=== PATIENT | male | born 2000 | race Caucasian/White ===

== ENCOUNTER 2019-09-14 00:14 | Inpatient (IN) | payer BC, SELFPAY ==
[2019-09-14 00:41] VITALS: BP 116/72; PULSE 87; RESP 18; TEMP 36.4; O2SAT 98; BMI 24.7
--- NOTE | 2019-09-14 00:45 | ED_ITS ---
HPI - Psych General: Chief Complaint: Psychiatric Symptoms Stated Complaint: si Time Seen by Provider: 09/14/19 00:16 Source: patient and family Mode of arrival: ambulatory Limitations: no limitations History of Present Illness: HPI Narrative: 18-year-old male was brought here with mother for aggressive behavior today along with suicidal ideations. Patient took 4 celecoxib pills today and told his mother just want to kill himself. Police were called he had ran made to get dogs out to find them. Patient here is very agitated and evasive and will not answer any my questions. He has no previous suicide ideations and no psych admissions. Patient also strained his back 2 days ago lifting is very mild pain. complaint: suicidal ideation Onset (ago): hour(s) Relieving factors: none Exacerbating factors: none Associated symptoms: Reports suicidal ideation Review of Systems Const: Denies: fever(s), chills, body aches or change in appetite Eyes: Denies: blurry vision or eye discomfort ENMT: Denies: throat pain or dental pain Card: Denies: chest pain Resp: Denies: dyspnea GI: Denies: abdominal pain, nausea, vomiting or diarrhea : Denies: dysuria Musc: Denies: neck pain or back pain Skin/Breast: Denies: rash Neuro: Denies: headache(s) Psych: Reports: mood swings, irritability and suicidal ideation Nahum/Lymph: Denies: easy bruising All/Imm: Denies: urticaria [facility] ED PFSH: Surgical History History of back surgery (~09/2017) Social History Smoking and tobacco status: never smoked Alcohol intake: unknown Physical Exam Const: COMMON NORMALS: no acute distress, patient oriented x3 and healthy appearing HENMT: COMMON NORMALS: normocephalic and atraumatic HEAD & SCALP: normocephalic and atraumatic Eye: COMMON NORMALS: Equal, round and reactive pupils present and EOMs intact bilaterally PUPIL: Yes Equal, round and reactive pupils present Neck/C-Spine: COMMON NORMALS: full ROM and supple Chest: COMMONS NORMALS: normal inspection of the chest and normal palpation of entire chest wall Resp: COMMON NORMALS: normal respiratory effort, No retractions, No use of accessory muscles and clear to auscultation bilaterally AUSCULTATION: clear to auscultation bilaterally Cardio: COMMON NORMALS: regular rate, regular rhythm and No murmurs present (Cardio) RATE: regular rate RHYTHM: regular rhythm GI: COMMON NORMALS: Normal to inspection, nondistended, normoactive bowel sounds present, Soft to palpation, non-tender and no masses PALPATION: Yes Soft to palpation Extremity: COMMON NORMALS: normal to inspection and full ROM Neuro: COMMON NORMALS: patient oriented x3, moves all extremities and no focal motor deficits Psych: ATTITUDE: Yes Withdrawn affect present, Yes evasive, Yes Guarded attititude/behavior present, Yes agitated and Yes aggressive Skin: COMMON NORMALS: no rashes or lesions noted and no wounds GENERAL SKIN EXAM: no rashes or lesions noted MDM - Psych MDM Narrative: Medical decision making narrative: Patient presents for suicidal ideations and was placed under 96-hour hold. Spoke to Dr. Morgan patient is medically cleared. He does have back pain is likely a lumbar strain shows nothing acute on x-ray. Lab Data: Labs: Lab Results 09/14/19 Range/Units 01:06 WBC 12.9 (4.5-13.0) 10^3/ uL RBC 4.92 (4.1-5.3) 10^6/u L Hgb 14.4 (11.7-16.6) g/dL Hct 43.6 (42.0-52.0) % MCV 88.6 (80-94) fL MCH 29.3 (28.0-34.0) pg MCHC 33.0 (30.0-36.0) g/dL RDW 12.3 (12.1-15.1) % Plt Count 319 (130-400) 10^3/c mm MPV 10.3 (7.4-10.4) fL Neut % (Auto) 83.9 % Lymph % (Auto) 10.2 % [place] % (Auto) 5.2 % Eos % (Auto) 0.2 % Baso % (Auto) 0.2 % Neut # (Auto) 10.8 H (1.8-8.0) 10^3/u L Lymph # (Auto) 1.3 L (1.5-6.5) 10^3/u L [place] # (Auto) 0.7 (0.2-0.9) 10^3/u L Eos # (Auto) 0.0 (0.0-0.8) 10^3/u L Baso # (Auto) 0.0 (0.0-0.1) 10^3/u L Nucleated RBC % (a uto) 0 % Nucleated RBCs # 0.0 /100WBC Discharge Plan Discharge Prescriptions: No Action No Known Home Medications RF: 0 celecoxib [Celebrex] 200 mg capsule 200 mg PO BID Qty: 30 RF: 0 methylprednisolone [Medrol (Scott)] 4 mg tablets,dose pack See Rx Instructions PO PER PKG DIR Qty: 21 RF: 0 Coding Level of Care Code ED Music Librarian for Liug Fwd Exam Comprehensive
--- NOTE | 2019-09-14 00:52 | XRR_ITS ---
PROCEDURE INFORMATION: Exam: XR Lumbosacral Spine, 2 or 3 Views Exam date and time: 09/14/2019 1:24 AM Age: 18 years old Clinical indication: Pain and injury or trauma; Fall; Initial encounter; Blunt trauma (contusions or hematomas); Low back pain; Prior surgery; Surgery date: 6+ months TECHNIQUE: Imaging protocol: XR of the lumbosacral spine, 2 or 3 views. COMPARISON: CT Chest/Abdomen/Pelvis w IV* 09/29/2017 8:40 PM FINDINGS: Vertebrae: Interval appearance of the transverse screws in T12 and L2 connected to 2 vertical metallic rods along the left side of the T12 through L2 region as well as the narrow vertical metallic quintin within the previously-seen L1 burst fracture. Prominent retropulsion of part of L1 still likely. Continued slight anterior wedging of T12, but interval mild anterior wedging of L2. No visible acute fracture line. Continued slight spondylolisthesis at L5-S1 and minimal retrolisthesis at L4-L5. Previously-seen right L5 pars defect not clearly evident currently. Narrowing of the T12-L1 disc suspected; change in this area not excluded. L1-L2 disc not grossly narrowed since before. Narrowing of the L5-S1 disc again evident. Minimal narrowing of the L4-L5 disc not excluded. Soft tissues: No apparent acute disease. XR/XR lumbar spine 2-3V* [id number] IMPRESSION: 1. No suggestion of an acute fracture. Interval appearance of the metallic stabilization devices in the T12 through L2 region. Prominent retropulsion of the L1 burst fracture still likely. 2. Questionable interval narrowing of the T12-L1 disc. Narrowing of the L5-S1 disc again evident. Continued slight malalignments in the lower lumbar spine. Right L5 pars defect only seen on the previous CT.
[2019-09-14 01:18] LABS: Basophils % 0.2 %; Eosinophils % 0.2 %; Hematocrit 43.6 % (42.0-52.0); Hemoglobin 14.4 g/dL (11.7-16.6); Lymphocytes # 1.3 10^3/uL (1.5-6.5); Lymphocytes % 10.2 %; Mean Corpuscular Hemoglobin 29.3 pg (28.0-34.0); Mean Corpuscular Volume 88.6 fL (80-94); Mean Platelet Volume 10.3 fL (7.4-10.4); Monocytes # 0.7 10^3/uL (0.2-0.9); Monocytes % 5.2 %; Neutrophils # 10.8 10^3/uL (1.8-8.0); Neutrophils % 83.9 %; Nucleated Red Blood Cells % 0 %; Platelet Count 319 10^3/cmm (130-400); Red Blood Count 4.92 10^6/uL (4.1-5.3); Red Cell Distribution Width 12.3 % (12.1-15.1); White Blood Count 12.9 10^3/uL (4.5-13.0)
[2019-09-14 01:37] LABS: Alanine Aminotransferase 26 U/L (0-41); Albumin Level 4.7 g/dL (3.5-5.2); Alkaline Phosphatase 138 IU/L (40-130); Anion Gap 16.4 (5-19); Aspartate Amino Transferase 25 U/L (0-40); Blood Urea Nitrogen 21 mg/dL (6-20); Calcium 9.1 mg/dL (8.5-10.5); Carbon Dioxide 25 mmol/L (22-29); Chloride 101 mmol/L (98-107); Globulin 2.7 g/dL (1.3-4.6); Glomerular Filtration Rate 108.7 mL/min (90-130); Glucose 111 mg/dL (65-115); Osmolality Calculated 283 mOsm/kg (285-295); Potassium 4.4 mmol/L (3.5-5.1); Salicylate 0.4 mg/dL (3-10); Sodium 138 mmol/L (136-145); Total Bilirubin 0.4 mg/dL (0.15-1.2); Total Protein 7.4 g/dL (6.6-8.7)
[2019-09-14 01:40] LABS: Acetaminophen < 5.0 ug/mL (10-30); Alcohol Level < 10 mg/dL (0-10)
[2019-09-14] MEDS: LORazepam 2 mg Tablet PO (01:46)
[2019-09-14 03:34] LABS: Amphetamines Screen Urine Negative (Negative); Barbiturates Screen Urine Negative (Negative); Benzodiazepines Screen Urine Negative (Negative); Cocaine Screen Urine Negative (Negative); Opiate Screen Urine Negative (Negative); PCP Screen Urine Negative (Negative); THC Screen Urine Negative (Negative)
[2019-09-14 03:36] VITALS: BP 142/76; PULSE 102; RESP 18; TEMP 37.2; O2SAT 94
[2019-09-14 06:00] VITALS: PULSE 17
--- NOTE | 2019-09-14 12:23 | PM.NHP ---
Providers/Chief Complaint Admitting Physician: Raul Carter M.D. Primary Care Provider: Nuha Harper MD Referral Source: [facility] [place] [facility] Chief Complaint: si HPI NPU History of Present Illness Cory Crowder is a 18-year-old male who was brought here with mother for aggressive behavior today along with suicidal ideations. Patient took 4 celecoxib pills today and told his mother just want to kill himself. Police were called he had ran made to get dogs out to find them. Patient here is very agitated and evasive and will not answer any my questions. He has no previous suicide ideations and no psych admissions. Patient also strained his back 2 days ago lifting is very mild pain. Review of Systems Narrative: Const: Denies: fever(s), chills, body aches or change in appetite Eyes: Denies: blurry vision or eye discomfort ENMT: Denies: throat pain or dental pain Card: Denies: chest pain Resp: Denies: dyspnea GI: Denies: abdominal pain, nausea, vomiting or diarrhea : Denies: dysuria Musc: Denies: neck pain or back pain Skin/Breast: Denies: rash Neuro: Denies: headache(s) Psych: Reports: mood swings, irritability and suicidal ideation Nahum/Lymph: Denies: easy bruising All/Imm: Denies: urticaria Meds NPU Home Medications Medication Instructions Recorded Confirmed Last Taken Type No Known Home Medications 09/12/19 09/12/19 Unknown History celecoxib 200 mg capsule 200 mg PO BID #30 cap 09/12/19 09/12/19 Unknown Rx methylprednisolone 4 mg tablets in See Rx Instructions PO PER PKG DIR 09/12/19 09/12/19 Unknown Rx a dose pack #21 each Allergies Allergy/AdvReac Type Severity Reaction Status Date / Time No Known Allergies Allergy Verified 09/10/19 08:24 PFSH NPU PFSH: Surgical History History of back surgery (~09/2017) Social History Smoking and tobacco status: never smoked Alcohol intake: unknown Mental Status Exam MSE Comments: This is a 18-year-old male who presents at his stated age. Mood is dysphoric and affect is flat. He is not happy he is here and is absolutely gobsmacked that he should have to stay here under involuntary hold through as far as . Thought processes are integrated and free of any racing, blocking or looseness of association. Speech is mumbled; he hangs his head and talks to the floor. I repeatedly tell him I cannot hear him when he talks to the floor. When he lifts his head he is not dysarthric, aprosodic nor pressured. He denies suicidal or homicidal ideation, plan or intent. He cannot explain why he took the celecoxib. Vitals/I&O/Wt Last Vital Signs Temp 99.0 F 09/14/19 03:36 Pulse 17 L 09/14/19 06:00 Resp 18 09/14/19 03:36 BP 142/76 09/14/19 03:36 Pulse Ox 94 09/14/19 03:36 Weight last 48 hrs Weight 198 lb Physical Exam Narrative: EXAM NARRATIVE: Const: COMMON NORMALS: no acute distress, patient oriented x3 and healthy appearing HENMT: COMMON NORMALS: normocephalic and atraumatic HEAD & SCALP: normocephalic and atraumatic Eye: COMMON NORMALS: Equal, round and reactive pupils present and EOMs intact bilaterally PUPIL: Yes Equal, round and reactive pupils present Neck/C-Spine: COMMON NORMALS: full ROM and supple Chest: COMMONS NORMALS: normal inspection of the chest and normal palpation of entire chest wall Resp: COMMON NORMALS: normal respiratory effort, No retractions, No use of accessory muscles and clear to auscultation bilaterally AUSCULTATION: clear to auscultation bilaterally Cardio: COMMON NORMALS: regular rate, regular rhythm and No murmurs present (Cardio) RATE: regular rate RHYTHM: regular rhythm GI: COMMON NORMALS: Normal to inspection, nondistended, normoactive bowel sounds present, Soft to palpation, non-tender and no masses PALPATION: Yes Soft to palpation Extremity: COMMON NORMALS: normal to inspection and full ROM Neuro: COMMON NORMALS: patient oriented x3, moves all extremities and no focal motor deficits Psych: ATTITUDE: Yes Withdrawn affect present, Yes evasive, Yes Guarded attititude/behavior present, Yes agitated and Yes aggressive Skin: COMMON NORMALS: no rashes or lesions noted and no wounds GENERAL SKIN EXAM: no rashes or lesions noted Data NPU : 09/14/19 01:06 09/14/19 01:06 A&P Assessment and plan (1) Suicidal ideation: This is not the product persistent depression but of crisis in an adolescent, which is no longer risky. The 96-hour involuntary hospitalization is well founded. Status: Acute Involuntary Hold Information 96 Hour Hold: 96 Hour Involuntary Admission: Yes 96 Hour Hold Ending Date: 09/20/19 96 Hour Hold Ending Time: 00:16 Attestations NPU Medical Necessity Statement*: I anticipate 4 to 5 nights hospital stay. Time Spent in Patient Care: Greater than 35 minutes (>than 50% of time spent in counselling and/or direct pt care on unit). 50 minutes Coding Level of Care Code Acute Dump Truck Driver Off Highway for Bud Stone Diagnoses Suicidal ideation R45.684
[2019-09-14 14:00] VITALS: BP 133/79; BP 142/76; PULSE 17; PULSE 84; RESP 18; TEMP 36.9; TEMP 37.2; O2SAT 94
[2019-09-14] MEDS: OLANZapine 5 mg ODT PO (15:09)
[2019-09-14 16:58] VITALS: BP 138/82; PULSE 90; RESP 17; TEMP 36.8; O2SAT 98
[2019-09-14 22:00] VITALS: BP 89/46; PULSE 56; RESP 17; TEMP 36.7; O2SAT 94
[2019-09-15 06:00] VITALS: BP 80/39; PULSE 53; RESP 17; TEMP 36.8; O2SAT 96
[2019-09-15] MEDS: nicotine 21 mg Patch 1 PATCH TRANSDERMA (08:58)
[2019-09-15 14:00] VITALS: BP 110/65; PULSE 97; RESP 17; TEMP 37
--- NOTE | 2019-09-15 14:52 | PM.NDC ---
Diagnoses at Discharge Discharge Diagnosis (1) Suicidal ideation: Status: Acute Problem details: Patient has an entirely different view of this episode. He feels as if he had been selfish. Reason for Visit Reason for Visit: si Brief History: Brought here by mother for aggressive behavior with suicidal ideation. Patient took 4 celecoxib pills and told his mother he just wanted to kill himself. Police were called to get dogs out to find him. Patient here was very agitated and evasive and would not answer any questions. He has no previous suicide ideation and no psych admissions. Patient also strained his back 2 days ago lifting is very mild pain. Hospital Course Hospital Course The patient calmed down very rapidly. He had a very intense talk with his sister who made it clear to him what his suicide would have done to the family and he now feels he has been selfish. He no longer harbors suicidal or homicidal ideation, plan or intent. Discharge Summary This is a late adolescent who impulsively became suicidal, precipitated a family crisis and now looks upon his behavior as selfish. I see no need for pharmacotherapy. Cognitive behavioral therapy would be very helpful. Perhaps family therapy even more so. Involuntary Hold Information 96 Hour Hold: 96 Hour Involuntary Admission: Yes 96 Hour Hold Ending Date: 09/20/19 96 Hour Hold Ending Time: 00:16 Mental Status Exam MSE Comments: 18-year-old male who appears his stated age. He is clean and neat. Mood is calm today, perhaps a bit sheepish over the crisis he precipitated in the family. Affect is appropriate. Thought processes are integrated and free of any racing, blocking or looseness of association. Speech is of normal rate and volume, without dysarthria, aprosody or pressure. There is no evidence of psychosis, such as but not limited to hallucinations, delusions and ideas of reference. Patient denies suicidal or homicidal ideation, plans or intent. Discharge Data Data Completed and Pending: Completed Studies During Hospitalization Category Date Time Status XR lumbar spine 2 -3V* [id number] Stat Exams 09/14/19 00:52 Completed Vitals: Last Vital Signs Temp 98.6 F 09/15/19 14:00 Pulse 97 09/15/19 14:00 Resp 17 09/15/19 14:00 BP 110/65 09/15/19 14:00 Pulse Ox 96 09/15/19 06:00 Discharge Plan Discharge Patient Disposition: Home, Self-Care Condition: Stable Prescriptions: Continued Celebrex 200 mg capsule 200 mg PO BID 15 Days Qty: 30 RF: 1 Discontinued methylprednisolone [Medrol (Scott)] 4 mg tablets,dose pack See Rx Instructions PO PER PKG DIR Qty: 21 RF: 0 Discharge Orders: Discharge Order (Routine); Ordered 09/15/19 Ordered By: Raul Carter Referrals: Nuha Harper MD [Primary Care Provider] - Discharge Diet: Usual diet Discharge Activity: Resume usual activity Discharge Attestations NPU Time Spent in Discharge Care*: greater than 30 min Specific Discharge Activities: Specific discharge activities: educating patient, discussing with pcp/other providers, discussing with registered nurse hh case manager/social workers/dc planners, documenting/other paperwork and evaluating patient/reviewing data Coding Level of Care Code Acute Self Pay Representative for Bud Fwd Diagnoses Suicidal ideation R48.615
[2019-09-15 16:01] VITALS: BP 110/65; PULSE 97; RESP 17; TEMP 37
== END 2019-09-15 17:27 | disposition home or self-care (01) | DRG 918 ==
LOC: ER 01:38 → NP 01:47
PROVIDERS: Emergency Medicine; Admitting Provider Psychiatry & Neurology Psychiatry; PCP Family Medicine; Visit Provider Psychiatry & Neurology Psychiatry
DX: T39.392A Poisoning by other nonsteroidal anti-inflammatory drugs [NSAID], intentional self-harm, initial encounter (principal); Y92.009 Unspecified place in unspecified non-institutional (private) residence as the place of occurrence of the external cause
CPT/HCPCS: 12345; 72100; 80053; 80306; 80307; 85025; 99284

== ENCOUNTER 2020-05-31 08:38 | Emergency (ER) | payer BC, SELFPAY ==
[2020-05-31 08:44] VITALS: BP 135/89; PULSE 57; RESP 16; TEMP 36.5; O2SAT 94; BMI 25.0
--- NOTE | 2020-05-31 08:46 | ECG_ITS ---
[facility] Test Date: 2020-05-31 Pat Name: Cory Crowder Department: Room: Gender: Male Senior Commissions Analyst: : 2000 Requested By: Reny Lou Order Number: [id number] Roland MD: Dana Connelly M.D. Measurements Intervals [place] Rate: 69 P: 73 UT: 172 QRS: 96 QRSD: 109 T: 71 QT: 396 QTc: 424 Interpretive Statements SINUS RHYTHM WITH MARKED SINUS ARRHYTHMIA BORDERLINE RIGHT AXIS DEVIATION [QRS AXIS > 90] No previous ECG available for comparison Electronically Signed On 05-31-2020 18:37:32 [employer] by Dana Connelly M.D. [email or web address]
--- NOTE | 2020-05-31 08:47 | ED_ITS ---
HPI - URI/Sore Throat General: Chief Complaint: Upper Respiratory Infection Stated Complaint: SOB/painful Cough Time Seen by Provider: 05/31/20 08:43 Source: patient Mode of arrival: ambulatory Limitations: no limitations History of Present Illness: HPI Narrative: 19-year-old male is a smoker states he has been having shortness of breath over the last 2 days along with sharp pa in and wheezing. States the pain is a 5 out of 10 worse with breathing. He denies any fevers. Denies any worsening proving factors. He does have wheezing here. Associated symptoms: Deny abdominal pain, chills, chest pain, diarrhea, fever(s), headache(s), nausea or vomiting Review of Systems Const: Denies: fever(s), chills, body aches or change in appetite Eyes: Denies: blurry vision or eye discomfort ENMT: Denies: throat pain or dental pain Card: Denies: chest pain Resp: Reports: dyspnea and wheezing GI: Denies: abdominal pain, nausea, vomiting or diarrhea : Denies: dysuria Musc: Denies: neck pain or back pain Skin/Breast: Denies: rash Neuro: Denies: headache(s) Psych: Denies: depression Nahum/Lymph: Denies: easy bruising All/Imm: Denies: urticaria PFSH ED PFSH: Surgical History History of back surgery (~09/2017) Social History Smoking and tobacco status: never smoked Alcohol intake: unknown Physical Exam Const: COMMON NORMALS: no acute distress, patient oriented x3 and healthy appearing HENMT: COMMON NORMALS: normocephalic and atraumatic HEAD & SCALP: normoceph alic and atraumatic Eye: COMMON NORMALS: Equal, round and reactive pupils present and EOMs intact bilaterally PUPIL: Yes Equal, round and reactive pupils present Neck/C-Spine: COMMON NORMALS: full ROM and supple Chest: COMMONS NORMALS: normal inspection of the chest and normal palpation of entire chest wall Resp: COMMON NORMALS: normal respiratory effort, No retractions and No use of accessory muscles AUSCULTATION: wheezes Cardio: COMMON NORMALS: regular rate, regular rhythm and No murmurs present (Cardio) RATE: regular rate RHYTHM: regular rhythm GI: COMMON NORMALS: Normal to inspection, nondistended, normoactive bowel sounds present, Soft to palpation, non-tender and no masses PALPATION: Yes Soft to palpation Extremity: COMMON NORMALS: normal to inspection and full ROM Neuro: COMMON NORMALS: patient oriented x3, moves all extremities and no focal motor deficits Psych: COMMON NORMALS: mental status grossly normal, Normal thought process present and cooperative THOUGHT PROCESS: Normal thought process present Skin: COMMON NORMALS: no rashes or lesions noted and no wounds GENERAL SKIN EXAM: no rashes or lesions noted Course Vital Signs: Vital signs: Vital Signs Temperature 97.7 F 05/31/20 08:44 Pulse Rate 88 05/31/20 09:03 Respiratory Rate 17 05/31/20 08:56 Blood Pressure 135/89 05/31/20 08:51 Pulse Oximetry 95 05/31/20 08:56 MDM - URI/Sore Throat MDM Narrative: Medical decision making narrative: 1 presents here with acute bronchitis and does have wheezing here. He feels improved after breathing treatment. We'll place him on steroids along with albuterol and antibiotics. He has no signs of pneumonia on x-ray. He is to follow-up his PCP and return if worsening. I did go over smoking cessation with him as well. Imaging Data^: CXR: Attestation: I personally reviewed and interpreted this imaging study as follows: My impression: no acute abnormality EKG Data^: EKG 1: Attestation: I personally reviewed and interpreted this EKG as follows: EKG interpretation date: 05/31/20 EKG interpretation time: 08:51 Interpretation: nsr hr [address] or t wave abnormalities qrs 109 qtc 414 Discharge Plan Discharge Patient Disposition: Home Clinical Impression: Bronchitis Condition: Stable Prescriptions: New Keflex 500 mg capsule 500 mg PO Q6H 7 Days Qty: 28 RF: 0 prednisone 50 mg tablet 50 mg PO DAILY Qty: 5 RF: 0 albuterol sulfate 90 mcg/actuation HFA aerosol inhaler 2 inh INHALATION Q6H PRN (Reason: shortness of breath or wheezing) Qty: 8 RF: 0 No Action Celebrex 200 mg capsule 200 mg PO BID 15 Days Qty: 30 RF: 1 Discharge Orders: Discharge ED (Routine); Ordered 05/31/20 Ordered By: Reny Lou Referrals: Nuha Harper MD [Primary Care Provider] - 1-3 days Discharge Diet: Advance as tolerated Discharge Activity: Resume usual activity Patient Instructions: Acute Bronchitis (ED) Coding Level of Care Code ED Needle Punch Machine Operator Helper for Chg Fwd Exam Comprehensive
[2020-05-31 08:51] VITALS: BP 135/89; PULSE 59; RESP 19; O2SAT 95
[2020-05-31] MEDS: predniSONE 20 mg Tablet 60 MG PO (08:53)
[2020-05-31 08:56] VITALS: PULSE 72; RESP 17; O2SAT 95
[2020-05-31] MEDS: ipratropium-albuterol 3 mL Neb INHALATION (08:56)
[2020-05-31 09:03] VITALS: PULSE 88
--- NOTE | 2020-05-31 09:09 | XRR_ITS ---
PROCEDURE INFORMATION: Exam: XR Chest, 1 View Exam date and time: 05/31/2020 9:10 AM Age: 19 years old Clinical indication: Shortness of breath; Prior surgery; Surgery type: Back; Additional info: SOB TECHNIQUE: Imaging protocol: XR of the chest Views: 1 view. COMPARISON: CT Chest/Abdomen/Pelvis w IV* 09/29/2017 8:40 PM FINDINGS: Lungs: Hyperinflation and mild interstitial prominence. No acute airspace disease. Pleural spaces: No pleural effusion. Heart/Mediastinum: No cardiomegaly. Bones/joints: Incompletely visualized surgical hardware in the spine. XR/XR chest 1V portable [id number] IMPRESSION: Hyperinflation , without acute airspace or pleural disease.
[2020-05-31 09:35] VITALS: BP 128/81; PULSE 74; RESP 18; O2SAT 94
== END 2020-05-31 09:35 | disposition home or self-care (01) ==
PROVIDERS: Emergency Provider Emergency Medicine; PCP Family Medicine
DX: J40 Bronchitis, not specified as acute or chronic (principal)
CPT/HCPCS: 71045; 93005; 94640; 99283; J7512; J7611

== ENCOUNTER → 2022-04-28 10:14 | Outpatient (BNVA) | payer BC, SELFPAY | PROVIDERS: PCP Family Medicine; Referring Provider Nurse Practitioner Family; Visit Provider Orthopaedic Surgery | DX: M54.50 Low back pain, unspecified (principal); Z98.1 Arthrodesis status | CPT/HCPCS: 72110 ==

== ENCOUNTER 2022-05-27 07:07 | Outpatient (CLI) | payer BC, SELFPAY ==
--- NOTE | 2022-05-27 07:30 | CT_ITS ---
WS: [id number] CT LUMBAR SPINE TECHNIQUE: Noncontrast CT of the lumbar spine with coronal and sagittal reformatted images. CLINICAL INFORMATION: back pain COMPARISON: CT 2018 DLP: 488.[address] scans at [facility] use at least one of these dose optimization techniques: automated e xposure control; mA and/or kV adjustment per patient size (includes targeted exams where dose is matc hed to clinical indication); or iterative reconstruction. FINDINGS: Mild lumbar curve. No acute compression. Slight anterolisthesis L5 on S1 measuring 2 mm. Chronic RIGH T pars defect or stress fracture RIGHT L5-S1. No significant widening. No edema on the concurrent MRI . Postoperative changes lateral quintin and screw fixation T12-L2 with partial corpectomy at L1. Interbod y strut graft. Hardware appears well seated. No evidence of hardware loosening. L1-L2: Interbody strut graft. Partial corpectomy. Osteophytic ridging with slight effacement of the v entral thecal sac. Spinal canal and foramen are patent. L2-L3: Normal. L3-L4: Mild annular bulging. Spinal canal and foramen are patent. L4-L5: Minimal annular bulging. Slight retrolisthesis. Spinal canal and foramen are patent. Moderate facet arthropathy. L5-S1: Tiny shallow central protrusion. Slight effacement of ventral thecal sac. Spinal canal and for amen are patent. Moderate facet arthropathy. Visualized pelvic bony structures: Normal. Paravertebral soft tissues: Normal. CT/CT lumbar spine wo con* [id number] IMPRESSION: 1. Prior postoperative changes lateral quintin and screw fixation T12-L2. No evide nce of hardware loosening. Interbody strut graft L1 with partial corpectomy. 2. No evidence of hardware loosening. Hardware appears intact. 3. RIGHT L5-S1 pars defect or chronic stress fracture. No significant widening . 2 mm anterolisthesis L5 on S1. 4. Osteophytic ridging T12-L1 and L1-L2 with slight narrowing of the RIGHT sub articular recess. 5. Mild annular bulging L3-L4 and L4-L5. 6. Tiny shallow central protrusion L5-S1 with slight effacement of ventral the yas sac. 7. Moderate facet arthropathy L4-L5 and L5-S1.
--- NOTE | 2022-05-27 07:36 | MR_ITS ---
WS: [id number] MRI LUMBAR SPINE NONCONTRAST TECHNIQUE: Sagittal T1, T2 and STIR imaging. Axial T1 and T2 imaging. CLINICAL INFORMATION: BACK PAIN COMPARISON: CT May 27, 2022 FINDINGS: Mild lumbar curve. Prior postoperative changes lateral fusion T12-L2. Partial corpectomy L1 with inte rbody strut graft. No high-grade central canal stenosis. Slight anterolisthesis L5 on S1. Anterolisth esis L5 on S1 measures 2 mm. Chronic pars defect or stress fracture RIGHT L5-S1. No significant widen ing or edema. T12-L1: Chronic bony retropulsion posterior superior endplate L1 with narrowing of the RIGHT subartic ular recess at the T12-L1 level. Impingement on the traversing RIGHT L1 nerve root. Spinal canal is p atent. Foramen are patent. L1-L2: Spinal canal and foramen are patent. L2-L3: Mild facet arthropathy. Spinal canal and foramen are patent. L3-L4: Mild annular bulging. Mild facet arthropathy. Spinal canal and foramen are patent. L4-L5: No significant disc bulging. Moderate facet arthropathy. Spinal canal and foramen are patent. L5-S1: Slight anterolisthesis L5 on S1. Mild annular bulging. Slight effacement of ventral thecal sac . Mild facet arthropathy. Spinal canal and foramen are patent. Visualized pelvic bony structures: Normal. Paravertebral soft tissues: Normal. MR/MR lumbar spine wo con* [id number] IMPRESSION: 1. Prior postoperative changes lateral quintin and screw fixation T12-L2 with part ial corpectomy interbody strut graft at L1. No high-grade central canal stenosi s. 2. Mild chronic appearing retropulsion RIGHT L1 impinges the traversing RIGHT L1 nerve root in the subarticular recess. 3. Tiny RIGHT foraminal protrusion L3-L4 with mild RIGHT foraminal narrowing. 4. Moderate facet arthropathy L4-L5 and L5-S1. 5. 2 mm anterolisthesis L5 on S1 with chronic RIGHT pars defect or stress frac ture. No widening or edema.
== END 2022-05-27 07:08 | disposition home or self-care (01) ==
PROVIDERS: PCP Family Medicine; Visit Provider Orthopaedic Surgery
DX: M47.816 Spondylosis without myelopathy or radiculopathy, lumbar region (principal); M47.817 Spondylosis without myelopathy or radiculopathy, lumbosacral region; M51.26 Other intervertebral disc displacement, lumbar region
CPT/HCPCS: 72131; 72148

== ENCOUNTER → 2023-01-30 16:14 | Outpatient (BNVA) | payer BC, SELFPAY | PROVIDERS: PCP Family Medicine; Visit Provider Nurse Practitioner Family | DX: J06.9 Acute upper respiratory infection, unspecified (principal) | CPT/HCPCS: 80053 ==